=== PATIENT | female | born 1935 | race African-American/Black ===

== ENCOUNTER 2022-02-10 12:28 | Inpatient (IN) | payer BC, MEDICAID ==
[~2022-02-10] VITALS: Ht 162.6 cm; Wt 87.5 kg
[2022-02-10 13:12] LABS: BASOPHILS % 0.7 % (0.0-2.0); HEMATOCRIT. 30.6 % (36.0-48.0); HEMOGLOBIN. 9.7 g/dL (12.0-16.0); LYMPHOCYTES % 21.4 % (20.0-50.0); MEAN CORPUSCULAR HEMOGLOBIN 28.6 pg (28.0-32.0); MEAN CORPUSCULAR VOLUME 90.3 fL (81.0-99.0); MEAN PLATELET VOLUME 9.6 fl (7.4-10.4); MONOCYTES % 12.3 % (2.0-8.0); NEUTROPHILS % 64.6 % (40.0-76.0); PLATELET 167 x1000/uL (130-400); RED BLOOD CELL COUNT 3.39 mill/uL (4.2-5.4)
[2022-02-10 13:20] LABS: CHLORIDE 111 mEq/L (98-107)
[2022-02-10 13:30] LABS: ETHANOL BLOOD < 10 mg/dL
[2022-02-10] MEDS ORDERED: IOHEXOL-350 100 ML BOTTLE ONE (13:59)
[2022-02-10 14:20] LABS: CLARITY URINE CLEAR (CLEAR); COLOR URINE YELLOW (YELLOW); KETONES URINE NEGATIVE (NEGATIVE); LEUKOCYTE ESTERASE URINE NEGATIVE (NEGATIVE); NITRITE URINE NEGATIVE (NEGATIVE); OCCULT BLOOD URINE NEGATIVE (NEGATIVE); PROTEIN URINE TRACE (NEGATIVE); SPECIFIC GRAVITY URINE 1.014 (1.005-1.030)
[2022-02-10 14:32] LABS: *AMPHETAMINES SCREEN URINE NEGATIVE (NEGATIVE); *BARBITURATES SCREEN URINE NEGATIVE (NEGATIVE); *BENZODIAZEPINES SCREEN URINE NEGATIVE (NEGATIVE); *COCAINE SCREEN URINE NEGATIVE (NEGATIVE); CANNABINOID URINE SCREEN NEGATIVE (NEGATIVE); METHADONE URINE SCREEN NEGATIVE (NEGATIVE); OPIATES URINE SCREEN NEGATIVE (NEGATIVE); PHENCYCLIDINE URINE SCREEN NEGATIVE (NEGATIVE)
[2022-02-10] MEDS ORDERED: ASPIRIN 325MG TABLET PO ONE (15:30)
[2022-02-10] MEDS ORDERED: LABETALOL 5MG/ML SYR 20 MG/4 ML SYRINGE IV NR ×2 (16:15→17:00)
[2022-02-10] MEDS ORDERED: ONDANSETRON HCL 4MG/2ML INJ IV PRN (17:00)
[2022-02-10] MEDS ORDERED: IPRATROPIUM/ALBUTEROL 0.5-3(2.5)MG/3ML NEB HHN PRN (17:00)
[2022-02-10] MEDS ORDERED: HYDROCODONE/ACETAMINOPHEN 5/325MG TABLET PO PRN ×2 (17:00→23:30)
[2022-02-10] MEDS ORDERED: LORAZEPAM 0.5MG TABLET PO PRN (17:00)
[2022-02-10] MEDS ORDERED: ACETAMINOPHEN 325MG TABLET PO PRN ×2 (17:00)
[2022-02-10] MEDS ORDERED: DOCUSATE SODIUM 100MG CAPSULE PO PRN (17:00)
[2022-02-10] MEDS ORDERED: NALOXONE HCL 0.4MG/ML VIAL IV PRN (17:15)
[2022-02-10 20:42] VITALS: BP 192/109
[2022-02-10 20:45] VITALS: BP 186/97
[2022-02-10 22:00] VITALS: BP 201/105
[2022-02-10] MEDS: HYDRALAZINE 20MG/ML VIAL IV PRN (22:32)
[2022-02-10] MEDS: CLOPIDOGREL 75MG TABLET PO SCH (22:32)
[2022-02-10] MEDS ORDERED: DEXTROSE 50% WATER 50ML SYRINGE IV PRN (23:30)
[2022-02-11] VITALS (10 sets, daily range): BP systolic 140–172; BP diastolic 65–98
[2022-02-11] MEDS: HYDRALAZINE 20MG/ML VIAL IV PRN ×2 (03:53→14:31)
[2022-02-11 06:26] LABS: BASOPHILS % 0.7 % (0.0-2.0); EOSINOPHILS % 1.6 % (0.0-5.0); HEMATOCRIT. 34.2 % (36.0-48.0); HEMOGLOBIN. 10.1 g/dL (12.0-16.0); LYMPHOCYTES % 19.2 % (20.0-50.0); MEAN CORPUSCULAR VOLUME 98.7 fL (81.0-99.0); MEAN PLATELET VOLUME 9.8 fl (7.4-10.4); MONOCYTES % 14.9 % (2.0-8.0); NEUTROPHILS % 63.6 % (40.0-76.0); PLATELET 146 x1000/uL (130-400); RED BLOOD CELL COUNT 3.47 mill/uL (4.2-5.4); RED CELL DISTRIBUTION WIDTH 19.1 % (11.6-14.6)
[2022-02-11 06:47] LABS: CHLORIDE 113 mEq/L (98-107)
[2022-02-11 07:19] LABS: HDL CHOLESTEROL 50 mg/dL (40-59); LDL CHOLESTEROL 20 mg/dL (5-100)
[2022-02-11] MEDS: BLOOD SUGAR DIAGNOSTIC STRIP TEST SCH ×2 (07:30→13:18)
[2022-02-11] MEDS: INSULIN LISPRO 100 UNITS/ML SUBCUT SCH ×2 (08:00→13:00)
[2022-02-11] MEDS ORDERED: LOSARTAN POTASSIUM 100 MG TABLET PO SCH (09:00)
[2022-02-11] MEDS ORDERED: FUROSEMIDE 40MG TABLET PO SCH (09:00)
[2022-02-11] MEDS ORDERED: ASPIRIN 81MG TABLET PO SCH (09:00)
[2022-02-11] MEDS ORDERED: CARVEDILOL 6.25 MG TABLET PO SCH (09:00)
[2022-02-11] MEDS ORDERED: METOPROLOL TARTRATE 25MG TABLET PO SCH (09:00)
[2022-02-11] MEDS: CLOPIDOGREL 75MG TABLET PO SCH (09:03)
[2022-02-11] MEDS ORDERED: CLOP75TA15 PO (13:15)
[2022-02-11] MEDS ORDERED: ASPI-1160 PO (13:15)
[2022-02-11] MEDS ORDERED: DOXAZOSIN MESYLATE 2MG TABLET PO SCH (21:00)
[2022-02-11] MEDS ORDERED: ATORVASTATIN CALCIUM 20MG TABLET PO SCH (21:00)
== END 2022-02-11 21:52 | disposition home health service (06) | DRG 304 ==
LOC: ER 13:42 → EDBEDREQTM 15:30 → EDBEDREQSVC 15:30 → EDBEDREQ 15:30 → EDBEDREQSVC 18:35 → ENRESERV 18:42 → 5EST 21:03
PROVIDERS: ADMIT Internal Medicine; ATTEND Internal Medicine
DX: I16.0 Hypertensive urgency (principal); G92.8 Other toxic encephalopathy; M41.9 Scoliosis, unspecified; E11.9 Type 2 diabetes mellitus without complications; D64.9 Anemia, unspecified; I48.91 Unspecified atrial fibrillation; M19.012 Primary osteoarthritis, left shoulder; I10 Essential (primary) hypertension; M19.011 Primary osteoarthritis, right shoulder; Z20.822 Contact with and (suspected) exposure to COVID-19; Z88.8 Allergy status to other drugs, medicaments and biological substances; Z91.013 Allergy to seafood
CPT/HCPCS: 36415; 70544; 70553; 71045; 80048; 80053; 80061; 80305; 80320; 81003; 82962; 83036; 84443; 84484; 85025; 87426; 93005; 93306; 93880; 97162; 99291; C9803; J0360; J3490; Q9967; G0480

== ENCOUNTER 2022-06-11 12:41 | Inpatient (IN) | payer BC, MEDICAID ==
[~2022-06-11] VITALS: Ht 167.6 cm; Wt 91.2 kg
[~2022-06-11 12:41] MED LIST: ASPI-1160 PO; CLOP75TA15 PO
[2022-06-11 13:46] LABS: BASOPHILS % 0.5 % (0.0-2.0); EOSINOPHILS % 0.5 % (0.0-5.0); HEMATOCRIT. 34.6 % (36.0-48.0); HEMOGLOBIN. 11.1 g/dL (12.0-16.0); MEAN CORPUSCULAR HEMOGLOBIN 30.6 pg (28.0-32.0); MEAN CORPUSCULAR VOLUME 95.1 fL (81.0-99.0); PLATELET 109 x1000/uL (130-400); RED BLOOD CELL COUNT 3.64 mill/uL (4.2-5.4); RED CELL DISTRIBUTION WIDTH 19.6 % (11.6-14.6)
[2022-06-11 13:52] LABS: CHLORIDE 111 mEq/L (98-107)
[2022-06-11 13:54] LABS: BG BASE EXCESS -2.3 mmol/L (-2.0-2.0); BG CARBOXYHEMOGLOBIN 0.9 % (0.5-1.5); BG DEOXYHEMOGLOBIN 5.8 % (0.0-5.0); BG FRACTION INSPIRED OXYGEN 21; BG HCO3 ACT 21.6 mmol/L (22.0-26.0); BG METHEMOGLOBIN 0.3 % (0.0-1.5); BG OXYGEN SATURATION 94.1 % (92.0-98.5); BG PCO2 34.1 mmHg (35.0-45.0); BG PH 7.419 (7.350-7.450); BG PO2 74.6 mmHg (75.0-100.0); BG SAMPLE SITE RIGHT RADIAL; BG TOTAL HEMOGLOBIN 11.6 g/dL (12.0-18.0); BG VENT MODE ROOM AIR
[2022-06-11] MEDS ORDERED: FUROSEMIDE 40MG/4ML VIAL IVP NR (14:30)
[2022-06-11] MEDS ORDERED: CEFTRIAXONE 1 G PREMIX 50 ML IV NR (15:00)
[2022-06-11] MEDS ORDERED: IPRATROPIUM/ALBUTEROL 0.5-3(2.5)MG/3ML NEB HHN PRN (18:30)
[2022-06-11] MEDS ORDERED: HYDROCODONE/ACETAMINOPHEN 5/325MG TABLET PO PRN (18:30)
[2022-06-11] MEDS ORDERED: LORAZEPAM 0.5MG TABLET PO PRN (18:30)
[2022-06-11] MEDS ORDERED: ONDANSETRON HCL 4MG/2ML INJ IV PRN (18:30)
[2022-06-11] MEDS ORDERED: ACETAMINOPHEN 325MG TABLET PO PRN ×2 (18:30)
[2022-06-11] MEDS ORDERED: DOCUSATE SODIUM 100MG CAPSULE PO PRN (18:30)
[2022-06-11] MEDS ORDERED: NALOXONE HCL 0.4MG/ML VIAL IV PRN (18:45)
[2022-06-11 19:30] VITALS: BP 135/111
[2022-06-11 19:40] VITALS: BP 135/111
[2022-06-11] MEDS ORDERED: DEXTROSE 50% WATER 50ML SYRINGE IV PRN (19:45)
[2022-06-11] MEDS: BLOOD SUGAR DIAGNOSTIC STRIP TEST SCH (21:09)
[2022-06-11] MEDS: INSULIN LISPRO 100 UNITS/ML SUBCUT SCH (21:09)
[2022-06-12] VITALS: BP 133/97
[2022-06-12 04:00] VITALS: BP 130/49
[2022-06-12] MEDS: BLOOD SUGAR DIAGNOSTIC STRIP TEST SCH ×4 (06:45→21:00)
[2022-06-12 08:00] VITALS: BP 150/100
[2022-06-12] MEDS: INSULIN LISPRO 100 UNITS/ML SUBCUT SCH ×3 (08:10→21:00)
[2022-06-12] MEDS: FUROSEMIDE 40MG/4ML VIAL IV SCH ×2 (09:00→17:45)
[2022-06-12 09:48] LABS: HEMATOCRIT. 43.3 % (36.0-48.0); HEMOGLOBIN. 13.8 g/dL (12.0-16.0); MEAN CORPUSCULAR HEMOGLOBIN 31.1 pg (28.0-32.0); MEAN CORPUSCULAR VOLUME 97.3 fL (81.0-99.0); RED BLOOD CELL COUNT 4.45 mill/uL (4.2-5.4); RED CELL DISTRIBUTION WIDTH 20.6 % (11.6-14.6)
[2022-06-12 12:00] VITALS: BP 96/75
[2022-06-12 13:25] LABS: PLATELET ESTIMATE SLIGHTLY DECREASED
[2022-06-12] MEDS: APIXABAN 5 MG TABLET PO SCH ×2 (14:04→17:45)
[2022-06-12 16:00] VITALS: BP 137/89
[2022-06-12] MEDS ORDERED: METF-414 MT (16:17)
[2022-06-12] MEDS ORDERED: CARV3.1242 MT (16:17)
[2022-06-12] MEDS ORDERED: DOXA1TAB MT (16:17)
[2022-06-12] MEDS ORDERED: FERR325T6 MT (16:28)
[2022-06-12] MEDS ORDERED: LOSA100T32 MT (16:28)
[2022-06-12] MEDS ORDERED: FURO40TA5 MT (16:28)
[2022-06-12] MEDS ORDERED: ATOR20TA65 MT (16:28)
[2022-06-12] MEDS: DILTIAZEM HCL 30MG TABLET PO SCH ×2 (17:44→21:03)
[2022-06-12 20:00] VITALS: BP 147/82
[2022-06-13 00:05] VITALS: BP 144/90
[2022-06-13 04:00] VITALS: BP 153/91
[2022-06-13] MEDS: DILTIAZEM HCL 30MG TABLET PO SCH ×3 (05:18→20:35)
[2022-06-13] MEDS: BLOOD SUGAR DIAGNOSTIC STRIP TEST SCH ×4 (05:21→20:35)
[2022-06-13] MEDS: INSULIN LISPRO 100 UNITS/ML SUBCUT SCH ×4 (05:21→20:39)
[2022-06-13 08:00] VITALS: BP 173/77
[2022-06-13] MEDS: FUROSEMIDE 40MG/4ML VIAL IV SCH ×2 (08:57→18:14)
[2022-06-13] MEDS: APIXABAN 5 MG TABLET PO SCH ×2 (08:57→18:15)
[2022-06-13] MEDS: CLONIDINE 0.1MG TABLET PO PRN (08:59)
[2022-06-13 12:00] VITALS: BP 135/65
[2022-06-13 16:00] VITALS: BP 138/74
[2022-06-13 20:00] VITALS: BP 156/84
[2022-06-14 00:05] VITALS: BP 139/94
[2022-06-14 04:00] VITALS: BP 160/94
[2022-06-14] MEDS: BLOOD SUGAR DIAGNOSTIC STRIP TEST SCH ×4 (05:35→20:39)
[2022-06-14] MEDS: DILTIAZEM HCL 30MG TABLET PO SCH ×3 (05:35→20:39)
[2022-06-14] MEDS: INSULIN LISPRO 100 UNITS/ML SUBCUT SCH ×4 (05:38→20:39)
[2022-06-14] MEDS: APIXABAN 5 MG TABLET PO SCH ×2 (10:35→17:44)
[2022-06-14] MEDS: FUROSEMIDE 40MG/4ML VIAL IV SCH ×2 (10:35→17:41)
[2022-06-14 12:00] VITALS: BP 140/92
[2022-06-14 16:00] VITALS: BP 152/97
[2022-06-14 16:43] LABS: BASOPHILS % 0.2 % (0.0-2.0); EOSINOPHILS % 1.3 % (0.0-5.0); HEMATOCRIT. 37.5 % (36.0-48.0); HEMOGLOBIN. 12.4 g/dL (12.0-16.0); LYMPHOCYTES % 12.4 % (20.0-50.0); MEAN CORPUSCULAR HEMOGLOBIN 30.9 pg (28.0-32.0); MEAN CORPUSCULAR VOLUME 93.8 fL (81.0-99.0); MONOCYTES % 10.4 % (2.0-8.0); NEUTROPHILS % 75.7 % (40.0-76.0); PLATELET 119 x1000/uL (130-400); RED CELL DISTRIBUTION WIDTH 19.6 % (11.6-14.6)
[2022-06-14 17:01] LABS: CHLORIDE 105 mEq/L (98-107)
[2022-06-14 20:00] VITALS: BP 163/96
[2022-06-14] MEDS: CLONIDINE 0.1MG TABLET PO PRN (20:39)
[2022-06-14 23:51] VITALS: BP 156/73
[2022-06-15 04:00] VITALS: BP 136/99
[2022-06-15] MEDS: DILTIAZEM HCL 30MG TABLET PO SCH ×3 (05:33→21:47)
[2022-06-15] MEDS: BLOOD SUGAR DIAGNOSTIC STRIP TEST SCH ×4 (05:33→21:39)
[2022-06-15] MEDS: INSULIN LISPRO 100 UNITS/ML SUBCUT SCH ×4 (05:36→21:48)
[2022-06-15 07:35] LABS: BASOPHILS % 0.3 % (0.0-2.0); HEMATOCRIT. 35.2 % (36.0-48.0); HEMOGLOBIN. 11.6 g/dL (12.0-16.0); LYMPHOCYTES % 11.8 % (20.0-50.0); MEAN CORPUSCULAR HEMOGLOBIN 30.7 pg (28.0-32.0); MEAN CORPUSCULAR VOLUME 92.9 fL (81.0-99.0); MEAN PLATELET VOLUME 10.3 fl (7.4-10.4); MONOCYTES % 14.2 % (2.0-8.0); NEUTROPHILS % 72.7 % (40.0-76.0); PLATELET 130 x1000/uL (130-400); RED BLOOD CELL COUNT 3.79 mill/uL (4.2-5.4); RED CELL DISTRIBUTION WIDTH 19.2 % (11.6-14.6)
[2022-06-15 08:00] VITALS: BP 153/96
[2022-06-15 08:36] LABS: CHLORIDE 105 mEq/L (98-107)
[2022-06-15] MEDS: APIXABAN 5 MG TABLET PO SCH ×2 (08:37→17:47)
[2022-06-15] MEDS: FUROSEMIDE 40MG/4ML VIAL IV SCH ×2 (08:37→17:47)
[2022-06-15 12:00] VITALS: BP 148/87
[2022-06-15] MEDS ORDERED: POTASSIUM CHLORIDE 20MEQ TABLET SR PO NR (13:00)
[2022-06-15] MEDS ORDERED: APIX5TAB PO (13:01)
[2022-06-15] MEDS ORDERED: DILT30TA38 PO (13:01)
[2022-06-15 16:00] VITALS: BP 94/69
[2022-06-15 20:00] VITALS: BP 162/89
[2022-06-16] VITALS: BP 147/79
[2022-06-16 04:00] VITALS: BP 144/93
[2022-06-16] MEDS: DILTIAZEM HCL 30MG TABLET PO SCH ×3 (05:10→21:07)
[2022-06-16] MEDS: BLOOD SUGAR DIAGNOSTIC STRIP TEST SCH ×4 (05:28→21:07)
[2022-06-16] MEDS: INSULIN LISPRO 100 UNITS/ML SUBCUT SCH ×4 (07:53→21:06)
[2022-06-16 08:00] VITALS: BP 139/79
[2022-06-16] MEDS: APIXABAN 5 MG TABLET PO SCH ×2 (09:12→17:13)
[2022-06-16] MEDS: FUROSEMIDE 40MG/4ML VIAL IV SCH ×2 (09:12→17:13)
[2022-06-16 12:00] VITALS: BP 127/64
[2022-06-16 16:00] VITALS: BP 135/76
[2022-06-16 20:00] VITALS: BP 139/63
[2022-06-17] VITALS (7 sets, daily range): BP systolic 125–152; BP diastolic 73–90
[2022-06-17] MEDS: DILTIAZEM HCL 30MG TABLET PO SCH ×3 (05:14→21:08)
[2022-06-17] MEDS: BLOOD SUGAR DIAGNOSTIC STRIP TEST SCH ×4 (07:40→21:00)
[2022-06-17] MEDS: INSULIN LISPRO 100 UNITS/ML SUBCUT SCH ×4 (08:10→21:00)
[2022-06-17] MEDS: APIXABAN 5 MG TABLET PO SCH ×2 (09:16→17:28)
[2022-06-17] MEDS: FUROSEMIDE 40MG/4ML VIAL IV SCH (09:21)
[2022-06-17] MEDS ORDERED: FUROSEMIDE 100MG/10ML VIAL IVP NR (12:00)
[2022-06-18 00:05] VITALS: BP 130/88
[2022-06-18 04:00] VITALS: BP 138/89
[2022-06-18] MEDS: DILTIAZEM HCL 30MG TABLET PO SCH (05:40)
[2022-06-18] MEDS: BLOOD SUGAR DIAGNOSTIC STRIP TEST SCH (05:40)
[2022-06-18] MEDS: INSULIN LISPRO 100 UNITS/ML SUBCUT SCH (05:44)
[2022-06-18 08:00] VITALS: BP 114/81
[2022-06-18] MEDS: APIXABAN 5 MG TABLET PO SCH (08:29)
== END 2022-06-18 10:30 | disposition home or self-care (01) | DRG 291 ==
LOC: ER 12:41 → EDBEDREQ 14:47 → EDBEDREQTM 16:51 → ENRESERV 17:15 → 7WST 18:19
PROVIDERS: ADMIT Internal Medicine; ATTEND Internal Medicine
DX: I11.0 Hypertensive heart disease with heart failure (principal); I50.33 Acute on chronic diastolic (congestive) heart failure; J96.01 Acute respiratory failure with hypoxia; E44.1 Mild protein-calorie malnutrition; J91.8 Pleural effusion in other conditions classified elsewhere; I48.91 Unspecified atrial fibrillation; I27.20 Pulmonary hypertension, unspecified; N28.9 Disorder of kidney and ureter, unspecified; M79.89 Other specified soft tissue disorders; E11.9 Type 2 diabetes mellitus without complications; Z88.8 Allergy status to other drugs, medicaments and biological substances; Z91.14 Patient's other noncompliance with medication regimen; Z86.73 Personal history of transient ischemic attack (TIA), and cerebral infarction without residual deficits; Z68.32 Body mass index [BMI] 32.0-32.9, adult
CPT/HCPCS: 36415; 36600; 71045; 80048; 80053; 82375; 82805; 82962; 83036; 83880; 84484; 85025; 93005; 93306; 97162; 99285; A6261; J0696; J1815; J1940

== ENCOUNTER 2022-08-16 23:17 | Inpatient (IN) | payer BC, MEDICAID ==
[~2022-08-16] VITALS: Ht 165.1 cm; Wt 75.6 kg
[~2022-08-16 23:17] MED LIST changes: +APIX5TAB PO; +ATOR20TA65 MT; +DILT30TA38 PO; +DOXA1TAB MT; +FERR325T6 MT; +FURO40TA5 MT; +METF-414 MT
[2022-08-16] MEDS ORDERED: ASPIRIN 81MG TABLET PO ONE (23:45)
[2022-08-16] MEDS ORDERED: DILTIAZEM HCL 5MG/ML 5ML VIAL IV ONE (23:45)
[2022-08-17] VITALS: BP 138/86
[2022-08-17 00:29] LABS: BASOPHILS % 0.6 % (0.0-2.0); EOSINOPHILS % 0.6 % (0.0-5.0); HEMATOCRIT. 31.8 % (36.0-48.0); HEMOGLOBIN. 10.5 g/dL (12.0-16.0); LYMPHOCYTES % 16.3 % (20.0-50.0); MEAN CORPUSCULAR HEMOGLOBIN 31.2 pg (28.0-32.0); MEAN CORPUSCULAR VOLUME 94.5 fL (81.0-99.0); MEAN PLATELET VOLUME 9.5 fl (7.4-10.4); MONOCYTES % 8.7 % (2.0-8.0); NEUTROPHILS % 73.8 % (40.0-76.0); PLATELET 171 x1000/uL (130-400); RED BLOOD CELL COUNT 3.37 mill/uL (4.2-5.4); RED CELL DISTRIBUTION WIDTH 19.1 % (11.6-14.6)
[2022-08-17 00:31] LABS: CHLORIDE 105 mEq/L (98-107)
[2022-08-17] MEDS ORDERED: DIPHENHYDRAMINE 50MG CAPSULE PO ONE (01:30)
[2022-08-17] MEDS ORDERED: FUROSEMIDE 40MG/4ML VIAL IVP NR (01:45)
[2022-08-17] MEDS ORDERED: DIPHENHYDRAMINE 50MG CAPSULE PO NR (04:15)
[2022-08-17] MEDS ORDERED: IOHEXOL-350 100 ML BOTTLE ONE (05:09)
[2022-08-17] MEDS ORDERED: ONDANSETRON HCL 4MG/2ML INJ IV PRN (09:30)
[2022-08-17] MEDS: FUROSEMIDE 40MG/4ML VIAL IVP SCH ×2 (11:15→17:32)
[2022-08-17] MEDS: DILTIAZEM HCL 30MG TABLET PO SCH ×2 (11:15→17:32)
[2022-08-17 16:30] VITALS: BP 142/90
[2022-08-17] MEDS: APIXABAN 5 MG TABLET PO SCH (17:00)
[2022-08-17 17:30] VITALS: BP 142/90
[2022-08-17 20:00] VITALS: BP 146/84
[2022-08-17] MEDS: ACETAMINOPHEN 325MG TABLET PO PRN (21:43)
[2022-08-18] VITALS: BP 138/86
[2022-08-18] MEDS: DILTIAZEM HCL 30MG TABLET PO SCH ×4 (00:40→17:42)
[2022-08-18 04:00] VITALS: BP 148/85
[2022-08-18] MEDS: FUROSEMIDE 40MG/4ML VIAL IVP SCH ×2 (05:48→17:42)
[2022-08-18 07:06] LABS: BASOPHILS % 0.5 % (0.0-2.0); EOSINOPHILS % 1.5 % (0.0-5.0); HEMATOCRIT. 33.4 % (36.0-48.0); LYMPHOCYTES % 21.3 % (20.0-50.0); MEAN CORPUSCULAR HEMOGLOBIN 31.3 pg (28.0-32.0); MEAN CORPUSCULAR VOLUME 94.5 fL (81.0-99.0); MEAN PLATELET VOLUME 9.7 fl (7.4-10.4); MONOCYTES % 11.3 % (2.0-8.0); NEUTROPHILS % 65.4 % (40.0-76.0); PLATELET 156 x1000/uL (130-400); RED BLOOD CELL COUNT 3.53 mill/uL (4.2-5.4); RED CELL DISTRIBUTION WIDTH 18.7 % (11.6-14.6)
[2022-08-18 07:29] LABS: CHLORIDE 105 mEq/L (98-107)
[2022-08-18 08:00] VITALS: BP 151/84
[2022-08-18] MEDS: APIXABAN 5 MG TABLET PO SCH (09:00)
[2022-08-18] MEDS: ACETAMINOPHEN 325MG TABLET PO PRN ×2 (09:26→20:04)
[2022-08-18 12:00] VITALS: BP 118/64
[2022-08-18] MEDS ORDERED: POTASSIUM CHLORIDE 20MEQ TABLET SR PO NR (13:00)
[2022-08-18 16:00] VITALS: BP 148/68
[2022-08-18 20:00] VITALS: BP 144/83
[2022-08-18] MEDS: CARVEDILOL 3.125 MG TABLET PO SCH (20:04)
[2022-08-18] MEDS: HYDROCODONE/ACETAMINOPHEN 10/325MG TABLET PO PRN (20:35)
[2022-08-18] MEDS ORDERED: NALOXONE HCL 0.4MG/ML VIAL IV PRN (20:45)
[2022-08-19] VITALS (7 sets, daily range): BP systolic 127–156; BP diastolic 65–92
[2022-08-19] MEDS: DILTIAZEM HCL 30MG TABLET PO SCH ×4 (00:47→21:08)
[2022-08-19] MEDS: FUROSEMIDE 40MG/4ML VIAL IVP SCH ×2 (06:29→17:22)
[2022-08-19] MEDS: CARVEDILOL 3.125 MG TABLET PO SCH (08:16)
[2022-08-19] MEDS: CARVEDILOL 6.25 MG TABLET PO SCH (21:08)
[2022-08-19] MEDS: HYDROCODONE/ACETAMINOPHEN 10/325MG TABLET PO PRN (21:09)
[2022-08-20] VITALS: BP 135/66
[2022-08-20 04:00] VITALS: BP 137/68
[2022-08-20] MEDS: FUROSEMIDE 40MG/4ML VIAL IVP SCH (06:23)
[2022-08-20] MEDS: DILTIAZEM HCL 30MG TABLET PO SCH ×2 (06:23→13:29)
[2022-08-20 08:00] VITALS: BP 158/83
[2022-08-20] MEDS: CARVEDILOL 6.25 MG TABLET PO SCH (08:32)
[2022-08-20 12:00] VITALS: BP 160/87
[2022-08-20] MEDS ORDERED: LISINOPRIL 5MG TABLET PO SCH (12:00)
[2022-08-20 16:00] VITALS: BP 127/65
== END 2022-08-20 16:06 | disposition home health service (06) | DRG 264 ==
LOC: ER 23:21 → MICUSO 08-17 01:53 → EDBEDREQ 08-17 01:55 → 8WST 08-17 16:23
PROVIDERS: ADMIT Internal Medicine; ATTEND Internal Medicine
PROC: 0JB70ZZ Excision of Back Subcutaneous Tissue and Fascia, Open Approach (ICD-10-PCS; principal; 2022-08-19)
DX: I11.0 Hypertensive heart disease with heart failure (principal); E43 Unspecified severe protein-calorie malnutrition; L89.153 Pressure ulcer of sacral region, stage 3; I50.43 Acute on chronic combined systolic (congestive) and diastolic (congestive) heart failure; J96.01 Acute respiratory failure with hypoxia; I48.91 Unspecified atrial fibrillation; I08.1 Rheumatic disorders of both mitral and tricuspid valves; D64.9 Anemia, unspecified; Z20.822 Contact with and (suspected) exposure to COVID-19; E11.42 Type 2 diabetes mellitus with diabetic polyneuropathy; G89.29 Other chronic pain; I42.9 Cardiomyopathy, unspecified; I27.29 Other secondary pulmonary hypertension; Z86.73 Personal history of transient ischemic attack (TIA), and cerebral infarction without residual deficits; Z79.01 Long term (current) use of anticoagulants; Z83.3 Family history of diabetes mellitus; Z68.27 Body mass index [BMI] 27.0-27.9, adult; Z88.8 Allergy status to other drugs, medicaments and biological substances; Z91.013 Allergy to seafood; Z79.82 Long term (current) use of aspirin; Z79.84 Long term (current) use of oral hypoglycemic drugs; Z79.899 Other long term (current) drug therapy
CPT/HCPCS: 36415; 71045; 71275; 80048; 80053; 82040; 83880; 84134; 84484; 85025; 85379; 87426; 93005; 93306; 93970; 97162; 97166; 99291; J1940; J3490; Q0163; Q9967

== ENCOUNTER 2022-09-15 16:34 | Inpatient (IN) | payer BC, MEDICAID ==
[~2022-09-15] VITALS: Ht 165.1 cm; Wt 89.8 kg
[2022-09-15] MEDS ORDERED: SODIUM CHLORIDE 0.9% 1,000 ML IV ONE (17:30)
[2022-09-15 18:05] LABS: BASOPHILS % 0.2 % (0.0-2.0); EOSINOPHILS % 0.2 % (0.0-5.0); HEMATOCRIT. 30.7 % (36.0-48.0); LYMPHOCYTES % 9.5 % (20.0-50.0); MEAN CORPUSCULAR HEMOGLOBIN 31.5 pg (28.0-32.0); MEAN PLATELET VOLUME 9.6 fl (7.4-10.4); NEUTROPHILS % 84.1 % (40.0-76.0); PLATELET 184 x1000/uL (130-400); RED BLOOD CELL COUNT 3.17 mill/uL (4.2-5.4); RED CELL DISTRIBUTION WIDTH 18.8 % (11.6-14.6)
[2022-09-15 18:13] LABS: CHLORIDE 107 mEq/L (98-107)
[2022-09-15 18:17] LABS: INR 1.2
[2022-09-15] MEDS ORDERED: AZITHROMYCIN 500MG/250ML 250 ML IV ONE (18:30)
[2022-09-15] MEDS ORDERED: CEFTRIAXONE 1 G PREMIX 50 ML IV ONE (18:30)
[2022-09-15] MEDS ORDERED: METOPROLOL TARTRATE 5MG/5ML VIAL IV NR ×2 (19:45→23:30)
[2022-09-15] MEDS ORDERED: OLANZAPINE 10 MG/VIAL IM NR (21:15)
[2022-09-16 02:10] VITALS: BP 118/73
[2022-09-16] MEDS ORDERED: DEXTROSE 50% WATER 50ML SYRINGE IV PRN (03:00)
[2022-09-16 04:00] VITALS: BP 119/74
[2022-09-16] MEDS: DILTIAZEM HCL 30MG TABLET PO SCH ×3 (05:38→21:25)
[2022-09-16] MEDS: BLOOD SUGAR DIAGNOSTIC STRIP TEST SCH ×4 (05:46→21:00)
[2022-09-16] MEDS: INSULIN LISPRO 100 UNITS/ML SUBCUT SCH ×4 (07:40→21:00)
[2022-09-16 08:00] VITALS: BP 110/62
[2022-09-16] MEDS: ATORVASTATIN CALCIUM 20MG TABLET PO SCH (08:22)
[2022-09-16] MEDS: APIXABAN 5 MG TABLET PO SCH ×2 (08:23→17:33)
[2022-09-16] MEDS: CLOPIDOGREL 75MG TABLET PO SCH (08:23)
[2022-09-16] MEDS: ASPIRIN 81MG TABLET PO SCH (08:23)
[2022-09-16] MEDS: METFORMIN HCL 500MG TABLET PO SCH ×2 (08:24→17:33)
[2022-09-16] MEDS ORDERED: FUROSEMIDE 40MG TABLET PO SCH (09:00)
[2022-09-16 12:15] VITALS: BP 102/48
[2022-09-16] MEDS ORDERED: CEFTRIAXONE 1 G PREMIX 50 ML IV SCH (14:30)
[2022-09-16 16:06] VITALS: BP 100/58
[2022-09-16 17:39] LABS: CLARITY URINE CLEAR (CLEAR); COLOR URINE YELLOW (YELLOW); KETONES URINE NEGATIVE (NEGATIVE); LEUKOCYTE ESTERASE URINE TRACE (NEGATIVE); NITRITE URINE NEGATIVE (NEGATIVE); OCCULT BLOOD URINE NEGATIVE (NEGATIVE); PH URINE 5.5 (4.5-8.0); PROTEIN URINE NEGATIVE (NEGATIVE); SPECIFIC GRAVITY URINE 1.011 (1.005-1.030)
[2022-09-16] MEDS: CEFTRIAXONE 1,000 MG in DEXTROSE 5% WATER 50 ML IV SCH (17:43)
[2022-09-16 20:00] VITALS: BP 107/68
[2022-09-17 04:00] VITALS: BP 102/59
[2022-09-17] MEDS: DILTIAZEM HCL 30MG TABLET PO SCH ×2 (05:49→13:45)
[2022-09-17 06:12] LABS: CHLORIDE 109 mEq/L (98-107)
[2022-09-17 06:22] LABS: BASOPHILS % 0.1 % (0.0-2.0); EOSINOPHILS % 0.4 % (0.0-5.0); HEMATOCRIT. 26.8 % (36.0-48.0); HEMOGLOBIN. 8.7 g/dL (12.0-16.0); LYMPHOCYTES % 13.2 % (20.0-50.0); MEAN CORPUSCULAR HEMOGLOBIN 31.7 pg (28.0-32.0); MEAN CORPUSCULAR VOLUME 97.5 fL (81.0-99.0); MEAN PLATELET VOLUME 9.7 fl (7.4-10.4); MONOCYTES % 10.7 % (2.0-8.0); NEUTROPHILS % 75.6 % (40.0-76.0); PLATELET 165 x1000/uL (130-400); RED BLOOD CELL COUNT 2.75 mill/uL (4.2-5.4); RED CELL DISTRIBUTION WIDTH 18.7 % (11.6-14.6)
[2022-09-17] MEDS: BLOOD SUGAR DIAGNOSTIC STRIP TEST SCH (06:47)
[2022-09-17] MEDS: INSULIN LISPRO 100 UNITS/ML SUBCUT SCH (06:47)
[2022-09-17 08:00] VITALS: BP 110/61
[2022-09-17] MEDS: CLOPIDOGREL 75MG TABLET PO SCH (10:23)
[2022-09-17] MEDS: METFORMIN HCL 500MG TABLET PO SCH ×2 (10:23→17:48)
[2022-09-17] MEDS: ATORVASTATIN CALCIUM 20MG TABLET PO SCH (10:24)
[2022-09-17] MEDS: ASPIRIN 81MG TABLET PO SCH (10:24)
[2022-09-17] MEDS: APIXABAN 5 MG TABLET PO SCH ×2 (10:24→17:48)
[2022-09-17] MEDS ORDERED: POTASSIUM CHLORIDE 20MEQ TABLET SR PO NR (10:45)
[2022-09-17 12:00] VITALS: BP 112/61
[2022-09-17 16:00] VITALS: BP 115/62
[2022-09-17] MEDS ORDERED: CITA10TA16 MT (16:05)
[2022-09-17] MEDS ORDERED: DOXA2TAB2 MT (16:05)
[2022-09-17] MEDS ORDERED: GABA-529 PO (16:05)
[2022-09-17] MEDS ORDERED: LOSA100T32 MT (16:05)
[2022-09-17] MEDS ORDERED: CARV12.545 MT (16:06)
[2022-09-17] MEDS: AMIODARONE HCL 200 MG TABLET PO SCH (17:48)
[2022-09-17] MEDS: CEFTRIAXONE 1,000 MG in DEXTROSE 5% WATER 50 ML IV SCH (17:48)
[2022-09-17 20:00] VITALS: BP 152/86
[2022-09-17] MEDS ORDERED: DILTIAZEM HCL 5MG/ML 5ML VIAL IV PRN (20:00)
[2022-09-17 20:30] VITALS: BP 109/61
[2022-09-18] VITALS: BP 120/66
[2022-09-18] MEDS: DILTIAZEM HCL 60MG TABLET PO SCH ×3 (01:29→12:00)
[2022-09-18 04:00] VITALS: BP 116/68
[2022-09-18] MEDS: METFORMIN HCL 500MG TABLET PO SCH ×2 (07:40→17:23)
[2022-09-18 08:00] VITALS: BP 114/69
[2022-09-18] MEDS: ATORVASTATIN CALCIUM 20MG TABLET PO SCH (09:22)
[2022-09-18] MEDS: AMIODARONE HCL 200 MG TABLET PO SCH ×2 (09:23→17:23)
[2022-09-18] MEDS: APIXABAN 5 MG TABLET PO SCH ×2 (09:23→17:00)
[2022-09-18] MEDS: CLOPIDOGREL 75MG TABLET PO SCH (09:23)
[2022-09-18 12:00] VITALS: BP 103/55
[2022-09-18 16:00] VITALS: BP 119/56
[2022-09-18 16:23] LABS: CHLORIDE 113 mEq/L (98-107)
[2022-09-18 17:20] LABS: BASOPHILS % 0.3 % (0.0-2.0); EOSINOPHILS % 0.4 % (0.0-5.0); HEMATOCRIT. 28.1 % (36.0-48.0); HEMOGLOBIN. 8.7 g/dL (12.0-16.0); LYMPHOCYTES % 9.6 % (20.0-50.0); MEAN CORPUSCULAR HEMOGLOBIN 31.9 pg (28.0-32.0); MEAN CORPUSCULAR VOLUME 102.7 fL (81.0-99.0); MEAN PLATELET VOLUME 9.2 fl (7.4-10.4); MONOCYTES % 8.7 % (2.0-8.0); PLATELET 163 x1000/uL (130-400); RED BLOOD CELL COUNT 2.73 mill/uL (4.2-5.4); RED CELL DISTRIBUTION WIDTH 19.6 % (11.6-14.6)
[2022-09-18] MEDS: CEFTRIAXONE 1,000 MG in DEXTROSE 5% WATER 50 ML IV SCH (17:23)
[2022-09-18] MEDS: DILTIAZEM HCL 30MG TABLET PO SCH (18:00)
[2022-09-18 20:00] VITALS: BP 108/56
[2022-09-18] MEDS: CARVEDILOL 3.125 MG TABLET PO SCH (20:14)
[2022-09-19] VITALS: BP 115/80
[2022-09-19] MEDS: DILTIAZEM HCL 30MG TABLET PO SCH ×4 (01:22→17:37)
[2022-09-19 04:00] VITALS: BP 108/67
[2022-09-19] MEDS: AMIODARONE HCL 200 MG TABLET PO SCH ×2 (08:28→17:37)
[2022-09-19] MEDS: METFORMIN HCL 500MG TABLET PO SCH ×2 (08:28→17:38)
[2022-09-19] MEDS: CLOPIDOGREL 75MG TABLET PO SCH (09:00)
[2022-09-19] MEDS: APIXABAN 5 MG TABLET PO SCH ×2 (09:00→17:37)
[2022-09-19] MEDS: CARVEDILOL 3.125 MG TABLET PO SCH (09:00)
[2022-09-19] MEDS: ATORVASTATIN CALCIUM 20MG TABLET PO SCH ×2 (09:00→20:59)
[2022-09-19 16:00] VITALS: BP 91/69
[2022-09-19] MEDS: CEFTRIAXONE 1,000 MG in DEXTROSE 5% WATER 50 ML IV SCH (17:37)
[2022-09-19] MEDS: CARVEDILOL 6.25 MG TABLET PO SCH (20:59)
[2022-09-20] VITALS: BP 111/81
[2022-09-20] MEDS: DILTIAZEM HCL 30MG TABLET PO SCH ×4 (01:51→18:57)
[2022-09-20 08:00] VITALS: BP 110/55
[2022-09-20] MEDS: APIXABAN 5 MG TABLET PO SCH ×2 (08:45→18:57)
[2022-09-20] MEDS: METFORMIN HCL 500MG TABLET PO SCH ×2 (08:45→17:40)
[2022-09-20] MEDS: CLOPIDOGREL 75MG TABLET PO SCH (08:47)
[2022-09-20] MEDS: AMIODARONE HCL 200 MG TABLET PO SCH ×2 (08:47→18:57)
[2022-09-20] MEDS: CARVEDILOL 6.25 MG TABLET PO SCH ×2 (08:47→21:40)
[2022-09-20 12:00] VITALS: BP 112/67
[2022-09-20 16:00] VITALS: BP 128/88
[2022-09-20] MEDS: CEFTRIAXONE 1,000 MG in DEXTROSE 5% WATER 50 ML IV SCH (17:11)
[2022-09-20 17:18] LABS: BASOPHILS % 0.2 % (0.0-2.0); EOSINOPHILS % 0.4 % (0.0-5.0); HEMATOCRIT. 28.4 % (36.0-48.0); HEMOGLOBIN. 9.1 g/dL (12.0-16.0); MEAN CORPUSCULAR HEMOGLOBIN 31.3 pg (28.0-32.0); MEAN CORPUSCULAR VOLUME 97.4 fL (81.0-99.0); MEAN PLATELET VOLUME 9.5 fl (7.4-10.4); MONOCYTES % 7.5 % (2.0-8.0); NEUTROPHILS % 80.9 % (40.0-76.0); PLATELET 168 x1000/uL (130-400); RED BLOOD CELL COUNT 2.91 mill/uL (4.2-5.4); RED CELL DISTRIBUTION WIDTH 18.7 % (11.6-14.6)
[2022-09-20 17:23] LABS: CHLORIDE 110 mEq/L (98-107)
[2022-09-20] MEDS ORDERED: LACTULOSE 20G/30ML UDC PO NR (18:00)
[2022-09-20 20:00] VITALS: BP 135/86
[2022-09-20] MEDS: ATORVASTATIN CALCIUM 20MG TABLET PO SCH (21:40)
[2022-09-20] MEDS: ACETAMINOPHEN 650MG/20.3ML UDC PO PRN (22:39)
[2022-09-21] VITALS (7 sets, daily range): BP systolic 116–161; BP diastolic 80–100
[2022-09-21] MEDS: ACETAMINOPHEN 650MG/20.3ML UDC PO PRN ×3 (00:03→23:26)
[2022-09-21] MEDS: DILTIAZEM HCL 30MG TABLET PO SCH ×6 (00:13→23:25)
[2022-09-21] MEDS: METFORMIN HCL 500MG TABLET PO SCH ×2 (07:40→17:40)
[2022-09-21] MEDS: AMIODARONE HCL 200 MG TABLET PO SCH ×2 (08:52→17:53)
[2022-09-21] MEDS: APIXABAN 5 MG TABLET PO SCH ×2 (08:52→17:54)
[2022-09-21] MEDS: CARVEDILOL 6.25 MG TABLET PO SCH ×2 (08:54→20:43)
[2022-09-21] MEDS: CLOPIDOGREL 75MG TABLET PO SCH (09:10)
[2022-09-21] MEDS ORDERED: DILTIAZEM HCL 30MG TABLET PO NR (09:45)
[2022-09-21] MEDS ORDERED: LACTULOSE 20G/30ML UDC PO NR (14:15)
[2022-09-21] MEDS: RISPERIDONE 0.5MG TABLET PO SCH (17:53)
[2022-09-21] MEDS: CEFTRIAXONE 1,000 MG in DEXTROSE 5% WATER 50 ML IV SCH (18:06)
[2022-09-21] MEDS: ATORVASTATIN CALCIUM 20MG TABLET PO SCH (20:42)
[2022-09-22] VITALS: BP 131/87
[2022-09-22 04:00] VITALS: BP 150/78
[2022-09-22] MEDS: DILTIAZEM HCL 30MG TABLET PO SCH ×3 (04:59→17:34)
[2022-09-22 08:00] VITALS: BP 126/71
[2022-09-22] MEDS: CARVEDILOL 6.25 MG TABLET PO SCH ×2 (09:03→20:42)
[2022-09-22] MEDS: APIXABAN 5 MG TABLET PO SCH ×2 (09:03→17:31)
[2022-09-22] MEDS: CLOPIDOGREL 75MG TABLET PO SCH (09:03)
[2022-09-22] MEDS: RISPERIDONE 0.5MG TABLET PO SCH (09:03)
[2022-09-22] MEDS: METFORMIN HCL 500MG TABLET PO SCH ×2 (09:04→17:31)
[2022-09-22] MEDS: AMIODARONE HCL 200 MG TABLET PO SCH ×2 (09:04→17:31)
[2022-09-22 12:00] VITALS: BP 112/55
[2022-09-22 16:00] VITALS: BP 122/87
[2022-09-22 20:00] VITALS: BP 147/95
[2022-09-22] MEDS: QUETIAPINE FUMARATE 25MG TABLET PO SCH (20:41)
[2022-09-22] MEDS: ATORVASTATIN CALCIUM 20MG TABLET PO SCH (20:42)
[2022-09-23] VITALS: BP 102/85
[2022-09-23] MEDS: DILTIAZEM HCL 30MG TABLET PO SCH
[2022-09-23 04:00] VITALS: BP 110/82
[2022-09-23 08:00] VITALS: BP 132/109
[2022-09-23] MEDS ORDERED: LIDOCAINE HCL 1% 30ML VIAL (10MG/ML) ONE (09:03)
[2022-09-23] MEDS: METFORMIN HCL 500MG TABLET PO SCH ×2 (09:57→18:51)
[2022-09-23] MEDS: AMIODARONE HCL 200 MG TABLET PO SCH ×2 (09:57→18:51)
[2022-09-23] MEDS: APIXABAN 5 MG TABLET PO SCH ×2 (09:57→18:51)
[2022-09-23] MEDS: CLOPIDOGREL 75MG TABLET PO SCH (09:57)
[2022-09-23] MEDS: CARVEDILOL 6.25 MG TABLET PO SCH ×2 (09:57→20:42)
[2022-09-23 12:00] VITALS: BP 106/64
[2022-09-23] MEDS ORDERED: SORBITOL 70% SOLN 30ML PO NR (13:15)
[2022-09-23 16:00] VITALS: BP 148/92
[2022-09-23] MEDS: METOCLOPRAMIDE HCL 10MG/2ML VIAL IV SCH (18:50)
[2022-09-23] MEDS: ATORVASTATIN CALCIUM 20MG TABLET PO SCH (20:42)
[2022-09-23] MEDS: QUETIAPINE FUMARATE 25MG TABLET PO SCH (20:42)
[2022-09-23 21:00] VITALS: BP 137/64
[2022-09-24] VITALS: BP 151/89
[2022-09-24] MEDS: METOCLOPRAMIDE HCL 10MG/2ML VIAL IV SCH ×4 (00:26→17:51)
[2022-09-24] MEDS: METFORMIN HCL 500MG TABLET PO SCH ×2 (06:56→17:50)
[2022-09-24 07:36] LABS: INR 1.3; PROTHROMBIN TIME 13.4 sec (9.6-11.0)
[2022-09-24 07:38] LABS: BASOPHILS % 0.2 % (0.0-2.0); EOSINOPHILS % 0.6 % (0.0-5.0); HEMATOCRIT. 24.9 % (36.0-48.0); HEMOGLOBIN. 8.1 g/dL (12.0-16.0); LYMPHOCYTES % 11.1 % (20.0-50.0); MEAN CORPUSCULAR HEMOGLOBIN 31.6 pg (28.0-32.0); MEAN CORPUSCULAR VOLUME 96.5 fL (81.0-99.0); MEAN PLATELET VOLUME 9.1 fl (7.4-10.4); MONOCYTES % 8.2 % (2.0-8.0); NEUTROPHILS % 79.9 % (40.0-76.0); PLATELET 170 x1000/uL (130-400); RED BLOOD CELL COUNT 2.58 mill/uL (4.2-5.4); RED CELL DISTRIBUTION WIDTH 18.5 % (11.6-14.6)
[2022-09-24 08:00] VITALS: BP 114/78
[2022-09-24 08:34] LABS: CHLORIDE 111 mEq/L (98-107)
[2022-09-24 08:43] LABS: TOTAL IRON BINDING CAPACITY 211 ug/dL (250-450)
[2022-09-24 09:07] LABS: VITAMIN B12 SERUM 423 pg/mL (211-911)
[2022-09-24] MEDS: APIXABAN 5 MG TABLET PO SCH ×2 (09:24→17:51)
[2022-09-24] MEDS: CARVEDILOL 6.25 MG TABLET PO SCH ×2 (09:24→21:00)
[2022-09-24] MEDS: AMIODARONE HCL 200 MG TABLET PO SCH ×2 (09:24→17:50)
[2022-09-24 09:52] LABS: FERRITIN 76 ng/mL (10-291)
[2022-09-24] MEDS: CLOPIDOGREL 75MG TABLET PO SCH (10:05)
[2022-09-24 12:00] VITALS: BP 110/67
[2022-09-24 16:00] VITALS: BP 126/76
[2022-09-24 20:00] VITALS: BP 121/77
[2022-09-24] MEDS: ATORVASTATIN CALCIUM 20MG TABLET PO SCH (21:00)
[2022-09-24] MEDS: QUETIAPINE FUMARATE 25MG TABLET PO SCH (21:00)
[2022-09-25] VITALS: BP 147/76
[2022-09-25] MEDS: DILTIAZEM HCL 30MG TABLET PO SCH ×4 (01:34→17:28)
[2022-09-25] MEDS: METOCLOPRAMIDE HCL 10MG/2ML VIAL IV SCH ×4 (01:34→17:22)
[2022-09-25 04:00] VITALS: BP 139/84
[2022-09-25 08:00] VITALS: BP 121/70
[2022-09-25] MEDS ORDERED: POTASSIUM CHLORIDE 20MEQ TABLET SR PO NR (09:45)
[2022-09-25] MEDS: APIXABAN 5 MG TABLET PO SCH ×2 (09:57→17:22)
[2022-09-25] MEDS: METFORMIN HCL 500MG TABLET PO SCH ×2 (09:57→17:22)
[2022-09-25] MEDS: CARVEDILOL 6.25 MG TABLET PO SCH ×2 (09:58→21:56)
[2022-09-25] MEDS: AMIODARONE HCL 200 MG TABLET PO SCH ×2 (09:58→17:22)
[2022-09-25] MEDS: CLOPIDOGREL 75MG TABLET PO SCH (10:00)
[2022-09-25 12:00] VITALS: BP 119/70
[2022-09-25 16:00] VITALS: BP 108/63
[2022-09-25 20:00] VITALS: BP 143/71
[2022-09-25] MEDS: QUETIAPINE FUMARATE 25MG TABLET PO SCH (21:56)
[2022-09-25] MEDS: ATORVASTATIN CALCIUM 20MG TABLET PO SCH (21:56)
[2022-09-26] VITALS: BP 119/68
[2022-09-26] MEDS: METOCLOPRAMIDE HCL 10MG/2ML VIAL IV SCH ×4 (00:12→17:35)
[2022-09-26] MEDS: DILTIAZEM HCL 30MG TABLET PO SCH ×4 (00:12→18:16)
[2022-09-26 04:00] VITALS: BP 127/80
[2022-09-26 07:41] LABS: CHLORIDE 111 mEq/L (98-107)
[2022-09-26 07:45] LABS: BASOPHILS % 0.3 % (0.0-2.0); HEMATOCRIT. 22.8 % (36.0-48.0); HEMOGLOBIN. 7.5 g/dL (12.0-16.0); LYMPHOCYTES % 18.5 % (20.0-50.0); MEAN CORPUSCULAR HEMOGLOBIN 32.1 pg (28.0-32.0); MEAN CORPUSCULAR VOLUME 97.4 fL (81.0-99.0); MEAN PLATELET VOLUME 9.3 fl (7.4-10.4); MONOCYTES % 9.7 % (2.0-8.0); NEUTROPHILS % 70.5 % (40.0-76.0); PLATELET 155 x1000/uL (130-400); RED BLOOD CELL COUNT 2.34 mill/uL (4.2-5.4); RED CELL DISTRIBUTION WIDTH 18.8 % (11.6-14.6)
[2022-09-26 08:00] VITALS: BP 137/66
[2022-09-26] MEDS: CARVEDILOL 6.25 MG TABLET PO SCH ×2 (09:00→09:15)
[2022-09-26] MEDS: APIXABAN 5 MG TABLET PO SCH ×2 (09:15→17:35)
[2022-09-26] MEDS: METFORMIN HCL 500MG TABLET PO SCH ×2 (09:15→17:35)
[2022-09-26] MEDS: AMIODARONE HCL 200 MG TABLET PO SCH ×2 (09:15→17:35)
[2022-09-26] MEDS: CLOPIDOGREL 75MG TABLET PO SCH (09:19)
[2022-09-26 12:00] VITALS: BP 112/58
[2022-09-26 16:00] VITALS: BP 148/85
[2022-09-26 17:20] VITALS: BP 148/85
== END 2022-09-26 19:44 | DRG 853 ==
LOC: ER 16:34 → EDBEDREQ 17:36 → 8WST 21:02 → EDBEDREQTM 21:24 → EDBEDREQ 21:24 → 6EST 09-22 22:28
PROVIDERS: ADMIT Internal Medicine; ATTEND Internal Medicine
PROC: 0JB70ZZ Excision of Back Subcutaneous Tissue and Fascia, Open Approach (ICD-10-PCS; principal; 2022-09-25)
DX: A41.9 Sepsis, unspecified organism (principal); I50.23 Acute on chronic systolic (congestive) heart failure; L89.153 Pressure ulcer of sacral region, stage 3; J18.9 Pneumonia, unspecified organism; E44.0 Moderate protein-calorie malnutrition; I42.9 Cardiomyopathy, unspecified; K56.7 Ileus, unspecified; N39.0 Urinary tract infection, site not specified; I48.91 Unspecified atrial fibrillation; D64.9 Anemia, unspecified; I11.0 Hypertensive heart disease with heart failure; E11.9 Type 2 diabetes mellitus without complications; Z20.822 Contact with and (suspected) exposure to COVID-19; G89.29 Other chronic pain; Z68.32 Body mass index [BMI] 32.0-32.9, adult; I27.20 Pulmonary hypertension, unspecified; I34.0 Nonrheumatic mitral (valve) insufficiency; Z74.01 Bed confinement status; Z88.8 Allergy status to other drugs, medicaments and biological substances; Z91.013 Allergy to seafood; Z86.73 Personal history of transient ischemic attack (TIA), and cerebral infarction without residual deficits
CPT/HCPCS: 36415; 36573; 71045; 74018; 80048; 80053; 81003; 82040; 82270; 82607; 82728; 82746; 82962; 83036; 83540; 83550; 83605; 83880; 84134; 84145; 84484; 85025; 85044; 87426; 93005; 93306; 93970; 97162; 97166; 97535; 99291; C1725; C1760; C1893; J0456; J0696; J1815; J2765; J3490; J7030; J7060

== ENCOUNTER 2022-09-26 21:00 | Emergency (ER) | payer BC, MEDICAID ==
[~2022-09-26] VITALS: Ht 162.6 cm; Wt 59.0 kg
[~2022-09-26 21:00] MED LIST changes: +CARV12.545 MT; +CITA10TA16 MT; -DOXA1TAB MT; +DOXA2TAB2 MT; +GABA-529 PO; +LOSA100T32 MT
[2022-09-27 01:42] VITALS: BP 132/76
== END 2022-09-27 01:45 ==
LOC: ER 21:00
DX: I48.91 Unspecified atrial fibrillation (principal); I11.0 Hypertensive heart disease with heart failure; I50.9 Heart failure, unspecified; Z88.8 Allergy status to other drugs, medicaments and biological substances; Z79.899 Other long term (current) drug therapy; Z98.890 Other specified postprocedural states; Z86.73 Personal history of transient ischemic attack (TIA), and cerebral infarction without residual deficits
CPT/HCPCS: 99283